=== PATIENT | female | born 2000 ===

== ENCOUNTER 2021-05-06 22:13 | Emergency (ER) | payer OTHER ==
[~2021-05-06] VITALS: Ht 172.7 cm; Wt 59.5 kg
[2021-05-06 23:37] VITALS: BP 140/81
== END 2021-05-07 00:16 | disposition home or self-care (01) ==
LOC: ED 23:59
DX: U07.1 COVID-19 (principal); J02.8 Acute pharyngitis due to other specified organisms; B97.89 Other viral agents as the cause of diseases classified elsewhere
CPT/HCPCS: 87081; 87880; 99283; U0003; U0005